=== PATIENT | male | born 1970 | race African-American/Black ===

== ENCOUNTER → 2022-02-22 | Day surgery (SDC) | payer BC ==
[2022-02-22 14:54] VITALS: BP 172/87
== END | disposition home or self-care (01) ==
LOC: SURG 14:44 → EDBD 14:44
PROVIDERS: ATTEND Anesthesiology
DX: R52 Pain, unspecified (principal); M79.7 Fibromyalgia; M35.9 Systemic involvement of connective tissue, unspecified; M19.90 Unspecified osteoarthritis, unspecified site; K21.9 Gastro-esophageal reflux disease without esophagitis; I10 Essential (primary) hypertension; Z72.89 Other problems related to lifestyle; Z79.899 Other long term (current) drug therapy; Z98.890 Other specified postprocedural states
CPT/HCPCS: 99204; G0463